=== PATIENT | male | born 1990 | race Caucasian/White ===

== ENCOUNTER 2022-08-01 00:40 | Inpatient (IN) | payer MEDICAID ==
[~2022-08-01] VITALS: Ht 185.4 cm; Wt 86.9 kg
[2022-08-03] MEDS ORDERED: magnesium hydroxide 30ml (MOM) UD suspension PO PRN (14:45)
[2022-08-03] MEDS ORDERED: acetaminophen 325mg tablet PO PRN ×2 (14:45)
[2022-08-03] MEDS ORDERED: mag hydrox/Alum hydrox/simeth 30ml oral suspension PO PRN (14:45)
[2022-08-03] MEDS ORDERED: loperamide 2mg capsule PO PRN (14:45)
[2022-08-03 15:00] VITALS: BP 144/103
[2022-08-03] MEDS ORDERED: [UNRECOGNIZED DRUG - CODE] PO (17:02)
[2022-08-03] MEDS ORDERED: IBUP-1984 PO (17:02)
[2022-08-03] MEDS ORDERED: QUET25TA PO ×3 (17:02→17:13)
[2022-08-03] MEDS ORDERED: THIA100T70 PO (17:02)
[2022-08-03] MEDS ORDERED: IBUP-2417 PO (17:21)
[2022-08-03] MEDS ORDERED: CYAN500T71 PO (17:21)
[2022-08-03] MEDS ORDERED: ibuprofen 200mg tablet PO PRN (17:50)
[2022-08-03] MEDS ORDERED: QUEtiapine 25mg tablet PO PRN (17:50)
--- NOTE | 2022-08-03 18:24 | NUR ---
Pt. admitted from [facility] in [place] for 5150 for tDTS. Per 5150, "You overdosed on medications in a suicide attempt that resulted in acute respiratory distress, intubation and an ICU stay. You failed to stop drinking after a 60 day program and ETOH contributed to the suicide attempt". Pt. cooperative on admission. Pt. denies any desire to . Pt. 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 Pt. reports that he did not have a mentor. Pt. reports that he only attempted suicide as a cry for help and did not plan it out and regrets it.
[2022-08-03] MEDS: NICOTINE POLACRILEX 2 MG LOZENGE BC PRN (18:31)
[2022-08-03 19:00] VITALS: BP 142/94
[2022-08-03] MEDS: QUEtiapine 25mg tablet PO SCH (21:04)
--- NOTE | 2022-08-04 05:43 | NUR ---
Nursing Progress Note: Problem : Pt. admitted from [facility] in [place] for 5150 for tDTS. Per 5150, "You overdosed on medications in a suicide attempt that resulted in acute respiratory distress, intubation and an ICU stay. You failed to stop drinking after a 60 day program and ETOH contributed to the suicide attempt". Pt. cooperative on admission. Pt. denies any desire to . Pt. 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 Pt. reports that he did not have a mentor. Pt. reports that he only attempted suicide as a cry for help and did not plan it out and regrets it. Interventions : Maintained a safe and supportive environment, provided clear and simple instructions, monitored behaviors and need for intervention, and maintained Q 15min safety checks. Response : Patient is pleasant and cooperative with care. Patient was observed sitting in bed talking to roommate at beginning of shift. Patient got up to ask for a nicotine lozenge and to grab the phone and talk to his . Patient requested to have his night medications later worried they would put him to sleep fast. Patient went into community room to participate in snack and socialize with other patients. Patient requested night medications a little before 2100 and then went to bed. Plan : Patient requires interruption of current crisis and medication adjustment in a safe and therapeutic environment.
[2022-08-04] MEDS: NICOTINE POLACRILEX 2 MG LOZENGE BC PRN ×5 (07:00→19:49)
[2022-08-04 07:43] LABS: CHOL/HDL RATIO 3.8 (0.00-4.99); CHOLESTEROL 152 MG/DL (0-200); HDL CHOLESTEROL 40 MG/DL (35-60); LDL CHOLESTEROL 86 MG/DL (50-100); TRIGLYCERIDES 216 MG/DL (20-135)
[2022-08-04 07:44] LABS: HEMOGLOBIN A1C 5.1 % (4.5-6.2)
[2022-08-04 08:00] VITALS: BP 128/91
[2022-08-04] MEDS ORDERED: nicotine 21mg patch - 24 hr TD SCH (08:00)
--- NOTE | 2022-08-04 08:36 | NUR ---
Pt. attended group today. We talked about Communication today focusing on how to utilize I messages. This Engine Lathe Set Up Operator shared how to create an I message and then we practiced writing them on the board. We then did an art expression exercise called holding on and letting go with the objective of identifying and releasing stressors. Pt's demeanor was calm, compliant and pleasant to work with. He was sociable with his peers and seemed to enjoy doing the art expression. His thought content and thought process were WNL. He was able to identify what things in his life he needed to let go and hold onto in an appropriate fashion. He was able to express his thoughts well. His mood appeared bright and his he demonstrated a full range of affect. Maite Amaral LCSW
[2022-08-04] MEDS: thiamine 100mg tablet PO SCH (08:38)
[2022-08-04] MEDS: cyanocobalamin 500mcg tablet PO SCH (08:38)
--- NOTE | 2022-08-04 10:28 | NUR ---
Assisted patient with getting on-line to complete JOSE EDUARDO for SDI that was due today. Ct reported he plans on returning home with his in [place]. He was future-oriented and goal directed. Mood and affect were bright. He reported he needs to go to meetings and get a sponsor. He reported he does not want to go back to rehab at this point. LONDON Brower
[2022-08-04] MEDS: QUEtiapine 25mg tablet PO PRN (15:30)
--- NOTE | 2022-08-04 17:37 | NUR ---
Nursing Progress Note: Problem : Pt. admitted from [facility] in [place] for 5150 for DTS. Per 5150, "You overdosed on medications in a suicide attempt that resulted in acute respiratory distress, intubation and an ICU stay. You failed to stop drinking after a 60 day program and ETOH contributed to the suicide attempt". Interventions : Maintained a safe and supportive environment, provided clear and simple instructions, monitored behaviors and need for intervention, and maintained Q 15min safety checks. Response : RN received pt. asleep in bed at start of shift. Pt. awoke and took AM meds. Pt. ate all meals in the community room. Pt. is social with peers but mostly stayed in his room during the day. 1:1 done at bedside, pt. appears anxious and reports feeling anxious to get home and be with his family. Pt. states, I dont want to , I just want to get back into rehab and get a good sponsor, Im motivated to not relapse. Pt. requested anxiolytic and received Seroquel 12.5mg po. Later pt. approached this RN stating, I did tell you Im not suicidal right?. Pt. reports feeling fearful that asking for medications would make his hospital stay longer. Seroquel prn was effective. Plan : Patient requires interruption of current crisis and medication adjustment in a safe and therapeutic environment.
[2022-08-04 19:00] VITALS: BP 137/94
[2022-08-04] MEDS: QUEtiapine 25mg tablet PO SCH (20:51)
--- NOTE | 2022-08-05 05:25 | NUR ---
Nursing Progress Note: Problem : Pt. admitted from [facility] in [place] for 5150 for DTS. Per 5150, "You overdosed on medications in a suicide attempt that resulted in acute respiratory distress, intubation and an ICU stay. You failed to stop drinking after a 60 day program and ETOH contributed to the suicide attempt". Interventions : Maintained a safe and supportive environment, provided clear and simple instructions, monitored behaviors and need for intervention, and maintained Q 15min safety checks. Response :Patient was observed pacing halls talking to other patients. Patent then returned to room to talk to his . Patient spent a long time on the phone making plans with for when he gets out. Patient eventually left room to participate in snack time. Patient requested to have night medications given later. Patient states he is having no suicidal tendencies and is ready to get out of here. Patient took night medications without issue and grabbed phone to talk to again. Plan : Patient requires interruption of current crisis and medication adjustment in a safe and therapeutic environment.
[2022-08-05] MEDS: thiamine 100mg tablet PO SCH (08:20)
[2022-08-05] MEDS: cyanocobalamin 500mcg tablet PO SCH (08:20)
[2022-08-05 08:33] VITALS: BP 151/87
[2022-08-05] MEDS: NICOTINE POLACRILEX 2 MG LOZENGE BC PRN ×4 (08:34→18:28)
--- NOTE | 2022-08-05 15:19 | NUR ---
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 He has follow up appts scheduled and is ready to go home. LONDON Brower
[2022-08-05] MEDS: QUEtiapine 25mg tablet PO PRN (16:27)
--- NOTE | 2022-08-05 17:28 | NUR ---
Nursing Progress Note: Problem : Pt. admitted from [facility] in [place] for 5150 for DTS. Per 5150, "You overdosed on medications in a suicide attempt that resulted in acute respiratory distress, intubation and an ICU stay. You failed to stop drinking after a 60 day program and ETOH contributed to the suicide attempt". Interventions : Maintained a safe and supportive environment, provided clear and simple instructions, monitored behaviors and need for intervention, and maintained Q 15min safety checks. Response : Patient was still sleeping at shift change, but was up soon after. He wakes in a good mood and keeps it all day. Patient ate breakfast and was compliant with all medications. He remains in the community room with his peers and socializes. He denies all MH symptoms, and seems pretty motivated to successfully complete his alcohol rehabilitation. Patient has good family support. We talked about the importance of finding a good sponsor that he likes and trusts, and will have his best interests at heart. Patient attended group today and seemed to enjoy it. He has not required PRN medications for anxiety today, but has utilized Nicotine lozenges for cravings. Plan : Patient requires interruption of current crisis and medication adjustment in a safe and therapeutic environment.
[2022-08-05 19:42] VITALS: BP 139/76
[2022-08-05] MEDS: QUEtiapine 25mg tablet PO SCH (20:07)
--- NOTE | 2022-08-06 04:41 | NUR ---
Nursing Progress Note: Problem: Pt. admitted from [facility] in [place] for 5150 for DTS. Per 5150, "You overdosed on medications in a suicide attempt that resulted in acute respiratory distress, intubation and an ICU stay. You failed to stop drinking after a 60 day program and ETOH contributed to the suicide attempt". Interventions: Maintained a safe and supportive environment, provided clear and simple instructions, monitored behaviors and need for intervention, and maintained Q 15min safety checks. Response: Patient was observed sitting in rec room socializing at Change of shift. Patient was very happy that he will be going home tomorrow. Patient was observed saying goodbye to multiple patients. Patient was later found sitting in room reading a book. Patient came out to participate in snack and talk to on the phone to make sure she was ready. Patient requested night medications early so he could go to bed early and be ready to leave in the morning. Plan: Patient requires interruption of current crisis and medication adjustment in a safe and therapeutic environment.
[2022-08-06] MEDS: cyanocobalamin 500mcg tablet PO SCH (07:09)
[2022-08-06] MEDS: thiamine 100mg tablet PO SCH (07:09)
[2022-08-06] MEDS: NICOTINE POLACRILEX 2 MG LOZENGE BC PRN (07:09)
[2022-08-06 08:27] VITALS: BP 121/81
[2022-08-06] MEDS ORDERED: QUET100T34 PO (11:25)
== END 2022-08-06 12:17 | disposition home or self-care (01) | DRG 753 ==
LOC: ADULT MH 08-03 14:33
PROVIDERS: ADMIT Psychiatry & Neurology Psychiatry; ATTEND Psychiatry & Neurology Psychiatry
DX: F39 Unspecified mood [affective] disorder (principal); F10.20 Alcohol dependence, uncomplicated; F17.210 Nicotine dependence, cigarettes, uncomplicated; F32.A Depression, unspecified; I10 Essential (primary) hypertension; T43.222A Poisoning by selective serotonin reuptake inhibitors, intentional self-harm, initial encounter; Y90.8 Blood alcohol level of 240 mg/100 ml or more; Z79.899 Other long term (current) drug therapy; Z87.19 Personal history of other diseases of the digestive system; Y92.89 Other specified places as the place of occurrence of the external cause; Z71.6 Tobacco abuse counseling
CPT/HCPCS: 36415; 80061; 83036; 84443; 87081